=== PATIENT | male | born 1960 | race Caucasian/White ===

== ENCOUNTER 2017-08-05 15:43 | Emergency (ER) | payer OTHER ==
[2017-08-05] MEDS ORDERED: CALCIUM GLUCONATE 25 GM TUBE ONE (17:01)
[2017-08-05] MEDS ORDERED: CALCIUM GLUCONATE FS SCH (17:15)
[2017-08-05] MEDS ORDERED: SODIUM CHLORIDE 0.9% FS SCH (17:15)
[2017-08-05] MEDS ORDERED: Nitrazine Tape 1 ROLL ONE ×2 (19:20→19:21)
== END 2017-08-05 19:41 | disposition home or self-care (01) ==
LOC: ERS 15:43
DX: T20.22XA Burn of second degree of lip(s), initial encounter (principal); T26.42XA Burn of left eye and adnexa, part unspecified, initial encounter; T20.06XA Burn of unspecified degree of forehead and cheek, initial encounter; T20.04XA Burn of unspecified degree of nose (septum), initial encounter; T79.9XXA Unspecified early complication of trauma, initial encounter; T31.0 Burns involving less than 10% of body surface
CPT/HCPCS: 99283